=== PATIENT | female | born 1990 | race Caucasian/White ===

== ENCOUNTER 2016-12-09 17:23 | Emergency (ER) | payer MEDICAID ==
[~2016-12-09] VITALS: Ht 162.6 cm; Wt 98.4 kg
[2016-12-09 17:36] VITALS: BP 142/100
[2016-12-09] MEDS ORDERED: HYDROcodone-ACET 5/325MG TAB PO ONE (20:45)
== END 2016-12-09 21:16 | disposition home or self-care (01) ==
LOC: ER 17:27
DX: S16.1XXA Strain of muscle, fascia and tendon at neck level, initial encounter (principal); G89.29 Other chronic pain; V49.9XXA Car occupant (driver) (passenger) injured in unspecified traffic accident, initial encounter; Y93.89 Activity, other specified; Y99.8 Other external cause status; Y92.89 Other specified places as the place of occurrence of the external cause; Z88.1 Allergy status to other antibiotic agents
CPT/HCPCS: 72040